=== PATIENT | male | born 1960 | race African-American/Black ===

== ENCOUNTER 2024-04-15 16:38 | Emergency (ER) | payer OTHER ==
[~2024-04-15] VITALS: Ht 185.4 cm; Wt 109.0 kg
[2024-04-15 16:47] VITALS: O2SAT 99
[2024-04-15 22:00] VITALS: BP 172/122; PULSE 92; RESP 16; TEMP 37; O2SAT 99
== END 2024-04-15 22:10 | disposition home or self-care (01) ==
LOC: ER 16:38
DX: I10 Essential (primary) hypertension (principal); Z79.899 Other long term (current) drug therapy
CPT/HCPCS: 99281